=== PATIENT | male | born 1980 | race Caucasian/White ===

== ENCOUNTER 2016-12-07 07:20 | Emergency (ER) | payer OTHER ==
[~2016-12-07] VITALS: Ht 180.3 cm; Wt 120.2 kg
[~2016-12-07 07:20] MED LIST: ATRN INH; FAMO20TA12 PO; PRON INH
[2016-12-07 07:30] VITALS: BP 115/76
--- NOTE | 2016-12-07 07:35 | NUR ---
PT TO OVERFLOW.
--- NOTE | 2016-12-07 07:36 | NUR ---
PATIENT PRESENTS TO ED WITH C/O LEFT FOOT PAIN . PT STATES HE TRIPPED ON AN OBJECT 4 DAYS AGO AND HAS HAD PAIN IN HIS LEFT FOOT, FROM TOP OF FOOT EXTENDING TO 5TH TOE SINCE THAT TIME . DENIES N/V/D; ECCHYMOSIS NOTED FROM TOP OF FOOT TO 5TH TOE, SKIN IS OTHERWISE PINK/WARM/DRY; AAOX4 WITH EVEN AND STEADY GAIT; LUNGS CLEAR BL; HR EVEN AND REGULAR; PT DENIES ANY FEVER, CP, SOB, OR COUGH AT THIS TIME; PATIENT STATES PAIN OF 7/10 AT THIS TIME; VSS; PATIENT POSITIONED IN OVERFLOW. ER MD MADE AWARE OF PT STATUS.
[2016-12-07 08:27] VITALS: BP 132/74
--- NOTE | 2016-12-07 08:27 | NUR ---
Patient discharged with v/s stable. Written and verbal after care instructions given and explained. Patient verbalized understanding. Ambulatory with steady gait. All questions addressed prior to discharge. Advised to follow up with PMD.
== END 2016-12-07 08:27 | disposition home or self-care (01) ==
LOC: MED 07:20
DX: S92.512A Displaced fracture of proximal phalanx of left lesser toe(s), initial encounter for closed fracture (principal); J45.909 Unspecified asthma, uncomplicated; Z79.899 Other long term (current) drug therapy; W22.8XXA Striking against or struck by other objects, initial encounter; Y93.89 Activity, other specified; Y92.89 Other specified places as the place of occurrence of the external cause; Y99.8 Other external cause status
CPT/HCPCS: 73630; 99284

== ENCOUNTER 2017-05-24 03:20 | Emergency (ER) | payer OTHER ==
[~2017-05-24] VITALS: Ht 175.3 cm; Wt 113.4 kg
[2017-05-24 03:28] VITALS: BP 115/81
--- NOTE | 2017-05-24 03:35 | NUR ---
AMBULATED TO ER BED 2
--- NOTE | 2017-05-24 03:45 | NUR ---
Pt came to ED c/o mid upper back pain radiating to right anterior ribs with some SOB. Pt states he is feeling tigh d/t bloating. Last meal was 10pm of frozen burritos. Pt also c/o gastric reflux pain. Pt took tums and gasex at home without reliefe. Pt states vomiting since 0000. VSS, Pt in POC, MD aware, continue to monitor.
[2017-05-24] MEDS: NACL 0.9% 1,000 ML IV ONE (04:11)
[2017-05-24 04:13] LABS: RED BLOOD CELL COUNT(AUTO) 5.25 MIL/uL (4.20-6.10); WHITE BLOOD COUNT (AUTO) 9.2 K/uL (4.8-10.8)
[2017-05-24 04:14] LABS: ANION GAP 12.3 (8-16); CARBON DIOXIDE 28.9 mmol/L (21-32); CREATININE 0.9 mg/dL (0.7-1.3); HEMATOCRIT 44.5 % (36-52); MEAN CORPUSCULAR HEMOGLOBIN 29 pg (27-31); MEAN CORPUSCULAR HGB CONC 34 g/dL (33-37); MEAN CORPUSCULAR VOLUME 85 fL (80-94); PLATELET COUNT (AUTO) 158 K/uL (140-450); POTASSIUM 4.2 mmol/L (3.5-5.1); RED CELL DISTRIBUTION WIDTH 13.8 % (11.6-13.7)
[2017-05-24 04:15] LABS: BASOPHILS % (AUTO) 0.4 % (0.0-2.0); EOSINOPHILS # (AUTO) 0.2 K/uL (0-0.4); EOSINOPHILS % (AUTO) 2.1 % (0.0-4.0); LYMPHOCYTES # (AUTO) 1.7 K/uL (2.0-11.5); LYMPHOCYTES % (AUTO) 18.3 % (20.5-51.1); MONOCYTES # (AUTO) 0.5 K/uL (0.8-1.0); MONOCYTES % (AUTO) 5.8 % (1.7-9.3); NEUTROPHILS # (AUTO) 6.7 K/uL (1.8-7.7); NEUTROPHILS % (AUTO) 73.4 % (42.2-75.2)
[2017-05-24] MEDS: KETOROLAC 30 MG/ML VIAL IVP ONE (04:17)
[2017-05-24] MEDS: ONDANSETRON 4 MG/2 ML VIAL IVP ONE (04:18)
[2017-05-24] MEDS: PANTOPRAZOLE 40 MG INJ VIAL IVP ONE (04:18)
[2017-05-24 04:20] LABS: ALBUMIN 3.7 g/dL (3.4-5.0); TOTAL BILIRUBIN 0.4 mg/dL (0.0-1.0)
--- NOTE | 2017-05-24 04:36 | NUR ---
Pt escorted to Xray by tech via wheel chair.
--- NOTE | 2017-05-24 05:00 | NUR ---
Pt returned to bed 2. VSS. Continue to monitor.
[2017-05-24] MEDS: MORPHINE SULFATE 2 MG/ML SYR IVP ONE (05:05)
[2017-05-24 05:30] VITALS: BP 124/79
--- NOTE | 2017-05-24 05:30 | NUR ---
Patient discharged with v/s stable and pain relieved. Written and verbal after care instructions given and explained. Patient alert, oriented and verbalized understanding of instructions. Ambulatory with steady gait. All questions addressed prior to discharge. ID band removed. Patient advised to follow up with PMD. Rx of Omeprazole, Tramadol, Zofran given. Patient educated on indication of medication including possible reaction and side effects. Opportunity to ask questions provided and answered.
== END 2017-05-24 05:30 | disposition home or self-care (01) ==
LOC: MED 03:20
DX: T62.8X1A Toxic effect of other specified noxious substances eaten as food, accidental (unintentional), initial encounter (principal); R10.9 Unspecified abdominal pain; M54.9 Dorsalgia, unspecified; R07.9 Chest pain, unspecified; R03.0 Elevated blood-pressure reading, without diagnosis of hypertension; J45.909 Unspecified asthma, uncomplicated; Z79.899 Other long term (current) drug therapy; Y92.89 Other specified places as the place of occurrence of the external cause
CPT/HCPCS: 36415; 74022; 80053; 83690; 85025; 96361; 96374; 96375; 99285; C9113; J1885; J2270; J2405; J7030

== ENCOUNTER 2017-05-26 05:30 | Emergency (ER) | payer OTHER ==
[~2017-05-26] VITALS: Ht 180.3 cm; Wt 130.6 kg
[2017-05-26 05:38] VITALS: BP 133/74
[2017-05-26] MEDS ORDERED: KETOROLAC 30 MG/ML VIAL IVP ONE (06:50)
[2017-05-26] MEDS ORDERED: metroNIDAZOLE 500 MG/NS PREMIX 100 ML IV ONE (06:50)
[2017-05-26] MEDS ORDERED: NACL 0.9% 1,000 ML IV ONE (06:50)
[2017-05-26] MEDS ORDERED: methylPREDNISolone SS 125 MG in WATER STERILE 2 ML IV ONE (06:50)
[2017-05-26] MEDS ORDERED: methylPREDNISolone SS 125 MG/2 ML VIAL ONE (06:56)
[2017-05-26 07:24] LABS: BASOPHILS # (AUTO) 0.2 K/uL (0.00-0.22); BASOPHILS % (AUTO) 2.3 % (0.0-2.0); EOSINOPHILS # (AUTO) 0.3 K/uL (0-0.4); HEMATOCRIT 44.1 % (36-52); HEMOGLOBIN 14.8 g/dL (12.0-18.0); LYMPHOCYTES # (AUTO) 1.6 K/uL (2.0-11.5); MEAN CORPUSCULAR HEMOGLOBIN 28 pg (27-31); MEAN CORPUSCULAR HGB CONC 34 g/dL (33-37); MEAN CORPUSCULAR VOLUME 84 fL (80-94); MONOCYTES # (AUTO) 0.5 K/uL (0.8-1.0); MONOCYTES % (AUTO) 6.9 % (1.7-9.3); NEUTROPHILS % (AUTO) 65.8 % (42.2-75.2); PLATELET COUNT (AUTO) 153 K/uL (140-450); RED BLOOD CELL COUNT(AUTO) 5.22 MIL/uL (4.20-6.10); RED CELL DISTRIBUTION WIDTH 12.8 % (11.6-13.7); WHITE BLOOD COUNT (AUTO) 7.6 K/uL (4.8-10.8)
[2017-05-26 07:30] LABS: APPEARANCE,URINE CLEAR (CLEAR); BILIRUBIN,URINE NEGATIVE (NEGATIVE); BLOOD, URINE NEGATIVE (NEGATIVE); COLOR,URINE YELLOW (YELLOW); LEUKOCYTE ESTERASE ,URINE NEGATIVE (NEGATIVE); NITRITE, URINE NEGATIVE (NEGATIVE); PH,URINE 7.5 (5.0-9.0); UGLUCOSE NEGATIVE (NEGATIVE)
[2017-05-26 07:40] LABS: RBC,URINE 0-5 (RARE) /HPF (0-5); WBC,URINE 0-5 (RARE) /HPF (0-5)
[2017-05-26 07:42] LABS: ANION GAP 11.6 (8-16); CARBON DIOXIDE 28.7 mmol/L (21-32); POTASSIUM 4.3 mmol/L (3.5-5.1)
[2017-05-26 07:43] LABS: ALBUMIN 3.6 g/dL (3.4-5.0); CREATININE 0.8 mg/dL (0.7-1.3); TOTAL BILIRUBIN 0.3 mg/dL (0.0-1.0)
[2017-05-26 08:38] VITALS: BP 131/82
== END 2017-05-26 08:37 | disposition home or self-care (01) ==
LOC: MED 05:30
DX: K64.9 Unspecified hemorrhoids (principal); J45.909 Unspecified asthma, uncomplicated; K21.9 Gastro-esophageal reflux disease without esophagitis
CPT/HCPCS: 36415; 74176; 80053; 81001; 82150; 83690; 85025; 96365; 96375; 99285; J1885; J2930; J3490; J7030

== ENCOUNTER 2017-06-09 01:50 | Emergency (ER) | payer OTHER ==
[~2017-06-09] VITALS: Ht 182.9 cm; Wt 113.4 kg
[2017-06-09 02:03] VITALS: BP 142/66
--- NOTE | 2017-06-09 02:08 | NUR ---
TO ER CHAIR A
[2017-06-09 02:10] VITALS: BP 142/66
--- NOTE | 2017-06-09 02:10 | NUR ---
PATIENT PRESENTS TO ED WITH C/O COUGHING, CONGESTION, DIMINSHED BREATH SOUNDS MED HX: ASTHMA PT DENIES N/V/D; SKIN IS PINK/WARM/DRY; AAOX4 WITH EVEN AND STEADY GAIT; HR EVEN AND REGULAR; PATIENT STATES PAIN OF 10/10 AT THIS TIME; VSS; PATIENT POSITIONED FOR COMFORT; HOB ELEVATED; BEDRAILS UP X2; BED DOWN. ER MD MADE AWARE OF PT STATUS.
[2017-06-09] MEDS ORDERED: methylPREDNISolone SS 125 MG in WATER STERILE 2 ML IM ONE (02:25)
[2017-06-09] MEDS ORDERED: ALBUTEROL SULFATE/IPRATROPIU 3 ML SOL IH ONE (02:25)
[2017-06-09] MEDS ORDERED: methylPREDNISolone SS 125 MG/2 ML VIAL ONE (02:26)
--- NOTE | 2017-06-09 02:30 | NUR ---
Respiratory Therapist at bedside for respiratory intervention. Patient tolerated .
--- NOTE | 2017-06-09 02:49 | NUR ---
PT TO XRAY VIA W/C IN STABLE CONDITION
--- NOTE | 2017-06-09 02:52 | NUR ---
PT RETURNED FROM XRAY VIA W/C IN STABLE CONDITION
[2017-06-09] MEDS ORDERED: ACETAMIN/CODEINE 120/12MG-5ML 5 ML UDC PO ONE (03:00)
--- NOTE | 2017-06-09 03:13 | NUR ---
PT REFUSED TYLENOL WITH CODEINE. PT WAS OFFERED VICODIN AND WAS REFUSED THAT WELL. PT WAS BELIGERENT AND USING SWEAR WORDS WHEN GIVEN DISCHARGE INSTRUCTIONS. PT REFUSED TO TAKE DISCHARGE INSTRUCTIONS AND WOULD ONLY TAKE HIS PRESCRIPTIONS WITH HIM. DR MONTES AND RN TALKED TO PT REGARDING DISCHARGE INSTRUCTIONS, HE JUST TOOK HIS PRESCRIPTIONS AND LEFT. RX'S GIVEN WERE AZITHROMYCIN, ALBUTEROL, PREDNISONE, GUAIATUSSIN.
== END 2017-06-09 03:13 | disposition home or self-care (01) ==
LOC: MED 01:50
DX: J45.901 Unspecified asthma with (acute) exacerbation (principal); J44.9 Chronic obstructive pulmonary disease, unspecified; J45.909 Unspecified asthma, uncomplicated; F17.210 Nicotine dependence, cigarettes, uncomplicated
CPT/HCPCS: 71045; 94640; 96372; 99283; J2930; J7620

== ENCOUNTER 2017-07-16 12:57 | Emergency (ER) | payer OTHER ==
[~2017-07-16] VITALS: Ht 180.3 cm; Wt 114.8 kg
[2017-07-16 13:01] VITALS: BP 137/93
--- NOTE | 2017-07-16 13:14 | NUR ---
37 YO M BIB SELF W/ C/O N/V SINCE 10AM THIS MORNING. PT REPORTS ABD PAIN 5/10 THAT DOES NOT RADIATE. PT A&O X 4. GCS 15. AMBULATORY W/STEADY GAIT. RESPIRATIONS EVEN AND UNLABORED. LUNG SOUNDS CLEAR BILATERALLY. CMS INTACT. PT ABD SOFT, NON-TENDER. BOWEL SOUNDS ACTIVE X 4. DENIES FEVER/CHILLS. DENIES DIARRHEA. REPORTS HE HAD A BBQ LAST NIGHT + CONSUMED 2 SHOTS OF ALCOHOL. ER MD AVENDANO NOTIFIED. PT NEEDS MET AT THIS TIME. WILL CONTINUE TO MONITOR.
[2017-07-16] MEDS ORDERED: ONDANSETRON 4 MG ODT PO ONE (14:10)
[2017-07-16 14:37] VITALS: BP 134/83
== END 2017-07-16 14:37 | disposition home or self-care (01) ==
LOC: MED 12:57
DX: R11.2 Nausea with vomiting, unspecified (principal); R10.84 Generalized abdominal pain; R03.0 Elevated blood-pressure reading, without diagnosis of hypertension; K21.9 Gastro-esophageal reflux disease without esophagitis; J45.909 Unspecified asthma, uncomplicated; F17.210 Nicotine dependence, cigarettes, uncomplicated
CPT/HCPCS: 99283; S0119

== ENCOUNTER 2017-08-29 19:04 | Emergency (ER) | payer OTHER ==
[~2017-08-29] VITALS: Ht 177.8 cm; Wt 122.5 kg
[2017-08-29 19:12] VITALS: BP 126/89
[2017-08-29] MEDS: KETOROLAC 60 MG/2 ML VIAL IM ONE (20:11)
[2017-08-29] MEDS: MORPHINE SULFATE 4 MG/ML SYR IM ONE (21:03)
[2017-08-29 21:57] VITALS: BP 126/89
== END 2017-08-29 21:56 | disposition home or self-care (01) ==
LOC: MED 19:04
DX: M54.2 Cervicalgia (principal); M25.512 Pain in left shoulder; M25.511 Pain in right shoulder; J45.909 Unspecified asthma, uncomplicated; K21.9 Gastro-esophageal reflux disease without esophagitis; Z79.899 Other long term (current) drug therapy
CPT/HCPCS: 72125; 96372; 99284; J1885; J2270

== ENCOUNTER 2017-10-22 18:26 | Emergency (ER) | payer OTHER ==
[~2017-10-22] VITALS: Ht 177.8 cm; Wt 132.0 kg
[2017-10-22 18:36] VITALS: BP 126/85
--- NOTE | 2017-10-22 18:42 | NUR ---
patient ambulated to rm 6 with steady gait. Gave report to Janis PETERSON.
--- NOTE | 2017-10-22 18:50 | NUR ---
37YO M with c/o right ankle pain x yesterday s/p "twisting his ankle while walking down stairs". Swelling noted to right ankle. Skin intact. Pulses +2 and < 3 seconds cap-refill. Able to bear weight on right leg. WILL CONTINUE TO MONITOR hx--asthma
--- NOTE | 2017-10-22 19:02 | NUR ---
XRAY AT BEDSIDE
--- NOTE | 2017-10-22 19:34 | NUR ---
Dr. Morris evaluating patient at bedside.
[2017-10-22 19:47] VITALS: BP 125/85
--- NOTE | 2017-10-22 19:48 | NUR ---
R ANKLE STIRRUP AND CRUTCHES PROVIDED BY EMT
== END 2017-10-22 19:49 | disposition home or self-care (01) ==
LOC: MED 18:26
DX: S82.54XA Nondisplaced fracture of medial malleolus of right tibia, initial encounter for closed fracture (principal); K21.9 Gastro-esophageal reflux disease without esophagitis; J45.909 Unspecified asthma, uncomplicated; F17.200 Nicotine dependence, unspecified, uncomplicated; W10.8XXA Fall (on) (from) other stairs and steps, initial encounter; Y93.89 Activity, other specified; Y92.89 Other specified places as the place of occurrence of the external cause; Y99.8 Other external cause status
CPT/HCPCS: 29515; 73610; 99284; Q0092

== ENCOUNTER 2018-05-19 03:40 | Emergency (ER) | payer OTHER ==
[~2018-05-19] VITALS: Ht 180.3 cm; Wt 122.5 kg
[2018-05-19 03:43] VITALS: BP 133/74
--- NOTE | 2018-05-19 03:43 | NUR ---
TO BED # 7 AMBULATORY, REPORT GIVEN TO MARIA ELENA PETERSON
--- NOTE | 2018-05-19 03:45 | NUR ---
PATIENT PRESENTED ER WITH C/O SOB X 2 DAYS. PT STATED THAT HE HAS HAD COUGHING WHEEZING AND CONGESTION. PT HAS HX OF ASTHMA. LUNG SOUNDS WHEEZES BILATERAL THROUGHOUT. PT DENIES FEVER, N/V/D. PATIENT STATES PAIN OF 7/10 AT THIS TIME; VSS; PATIENT POSITIONED FOR COMFORT; HOB ELEVATED; BEDRAILS UP X2; BED DOWN. ER MD MADE AWARE OF PT STATUS.
[2018-05-19] MEDS ORDERED: ALBUTEROL 0.083% 2.5 MG/3 ML NEBU INH ONE (03:55)
[2018-05-19] MEDS ORDERED: ALBUTEROL SULFATE/IPRATROPIU 3 ML SOL IH ONE (03:55)
[2018-05-19] MEDS ORDERED: predniSONE 20 MG TAB PO ONE (03:55)
[2018-05-19] MEDS ORDERED: KETOROLAC 60 MG/2 ML VIAL IM ONE (04:00)
--- NOTE | 2018-05-19 04:34 | NUR ---
PT IS SITTING UP IN BED, RESP. GAVE BREATHING TREATMENT. PT TOLERATED WELL. PENDING D/C. NANCI GAXIOLA MADE AWARE OF STATUS.
[2018-05-19 05:10] VITALS: BP 135/90
--- NOTE | 2018-05-19 05:10 | NUR ---
Patient discharged with v/s stable. Written and verbal after care instructions given and explained. Patient alert, oriented and verbalized understanding of instructions. Ambulatory with steady gait. All questions addressed prior to discharge. ID band removed. Patient advised to follow up with PMD. Rx of ZOFRAN, MOTRIN, PREDNISONE WAS given. Patient educated on indication of medication including possible reaction and side effects. Opportunity to ask questions provided and answered.
== END 2018-05-19 05:10 | disposition home or self-care (01) ==
LOC: MED 03:40
DX: J45.901 Unspecified asthma with (acute) exacerbation (principal); R05 Cough; R11.0 Nausea; F10.10 Alcohol abuse, uncomplicated; K21.9 Gastro-esophageal reflux disease without esophagitis; F17.200 Nicotine dependence, unspecified, uncomplicated; Z79.899 Other long term (current) drug therapy
CPT/HCPCS: 94640; 94760; 96372; 99283; J1885; J7512; J7613; J7620

== ENCOUNTER 2018-06-01 07:00 | Emergency (ER) | payer OTHER ==
[~2018-06-01] VITALS: Ht 180.3 cm; Wt 130.4 kg
[2018-06-01 07:12] VITALS: BP 133/66
--- NOTE | 2018-06-01 07:22 | NUR ---
PT AMBULATED TO ER BED 11
[2018-06-01] MEDS ORDERED: cefTRIAXone 1,000 MG in DEXT 5% MINI-BAG PLUS 50 ML IV ONE (07:30)
[2018-06-01] MEDS ORDERED: ALBUTEROL SULFATE/IPRATROPIU 3 ML SOL IH ONE (07:30)
[2018-06-01] MEDS ORDERED: KETOROLAC 30 MG/ML VIAL IM ONE (07:30)
[2018-06-01] MEDS ORDERED: methylPREDNISolone SS 125 MG/2 ML VIAL IVP ONE (07:30)
[2018-06-01] MEDS ORDERED: FAMOTIDINE 20 MG/2 ML VIAL IVP ONE (07:30)
[2018-06-01] MEDS ORDERED: diphenhydrAMINE 50 MG/ML VIAL IVP ONE (07:30)
[2018-06-01] MEDS ORDERED: PROMETHAZINE 25 MG/ML VIAL IM ONE (07:30)
[2018-06-01] MEDS ORDERED: AZITHROMYCIN 500 MG in DEXTROSE 5% 250 ML IV ONE (07:30)
--- NOTE | 2018-06-01 08:01 | NUR ---
PHLEB AT BEDSIDE
[2018-06-01] MEDS ORDERED: cefTRIAXone 1,000 MG VIAL ONE (08:13)
[2018-06-01] MEDS ORDERED: AZITHROMYCIN 500 MG INJ VIAL IV ONE (08:14)
--- NOTE | 2018-06-01 08:17 | NUR ---
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 PT REPORTS THAT HE TOOK 800MG IBUPROFEN AT 0200 WITHOUT RELIEF. RR EVEN AND UNLABORED. DRY COUGH NOTED. AAOX4. GCS 15. VSS; PATIENT POSITIONED FOR COMFORT IN CHAIR; BED DOWN. ER MD MADE AWARE OF PT STATUS.
--- NOTE | 2018-06-01 08:36 | NUR ---
RT AT BEDSIDE.
[2018-06-01 08:43] LABS: ANION GAP 12.4 (8-16); CARBON DIOXIDE 27.6 mmol/L (21-32)
[2018-06-01 08:47] LABS: BASOPHILS # (AUTO) 0.1 K/uL (0.00-0.22); BASOPHILS % (AUTO) 0.6 % (0.0-2.0); EOSINOPHILS # (AUTO) 0.2 K/uL (0-0.4); EOSINOPHILS % (AUTO) 2.7 % (0.0-4.0); HEMATOCRIT 48.9 % (36-52); HEMOGLOBIN 16.4 g/dL (12.0-18.0); LYMPHOCYTES # (AUTO) 2.2 K/uL (2.0-11.5); LYMPHOCYTES % (AUTO) 26.3 % (20.5-51.1); MEAN CORPUSCULAR HEMOGLOBIN 29 pg (27-31); MEAN CORPUSCULAR HGB CONC 33 g/dL (33-37); MEAN CORPUSCULAR VOLUME 85.3 fL (80-94); MONOCYTES # (AUTO) 0.6 K/uL (0.8-1.0); MONOCYTES % (AUTO) 7.4 % (1.7-9.3); NEUTROPHILS # (AUTO) 5.3 K/uL (1.8-7.7); PLATELET COUNT (AUTO) 160 K/uL (140-450); RED BLOOD CELL COUNT(AUTO) 5.73 MIL/uL (4.20-6.10); WHITE BLOOD COUNT (AUTO) 8.4 K/uL (4.8-10.8)
[2018-06-01 08:54] LABS: ALBUMIN 3.9 g/dL (3.4-5.0); TOTAL BILIRUBIN 0.6 mg/dL (0.0-1.0)
[2018-06-01] MEDS ORDERED: MORPHINE SULFATE 4 MG/ML SYR IM ONE (09:15)
--- NOTE | 2018-06-01 09:20 | NUR ---
DR GIBSON INFORMED THAT PATIENT STILL COMPLAINING OF 10/10 PAIN IN BACK.
[2018-06-01] MEDS ORDERED: MORPHINE SULFATE 4 MG/ML SYR ONE (09:31)
[2018-06-01 10:11] VITALS: BP 133/66
--- NOTE | 2018-06-01 10:11 | NUR ---
Patient discharged with v/s stable. Written and verbal after care instructions given and explained. Patient alert, oriented and verbalized understanding of instructions. Ambulatory with steady gait. All questions addressed prior to discharge. ID band removed. Patient advised to follow up with PMD. Rx of CODEINE, ALBUTEROL, PREDNISONE, DOXYCYCLINE given. Patient educated on indication of medication including possible reaction and side effects. Opportunity to ask questions provided and answered.
[2018-06-01 11:36] LABS: APPEARANCE,URINE CLEAR (CLEAR); BILIRUBIN,URINE NEGATIVE (NEGATIVE); BLOOD, URINE NEGATIVE (NEGATIVE); COLOR,URINE YELLOW (YELLOW); LEUKOCYTE ESTERASE ,URINE NEGATIVE (NEGATIVE); NITRITE, URINE NEGATIVE (NEGATIVE); PH,URINE 8.5 (5.0-9.0); UGLUCOSE NEGATIVE (NEGATIVE)
== END 2018-06-01 10:11 | disposition home or self-care (01) ==
LOC: MED 07:00
DX: J44.1 Chronic obstructive pulmonary disease with (acute) exacerbation (principal); M54.5 Low back pain; G89.29 Other chronic pain; K21.9 Gastro-esophageal reflux disease without esophagitis; Z79.899 Other long term (current) drug therapy
CPT/HCPCS: 36415; 71045; 80053; 81003; 85025; 87040; 94640; 96365; 96367; 96372; 96375; 99284; J0456; J0696; J1200; J1885; J2270; J2550; J2930; J3490; J7620

== ENCOUNTER 2018-08-12 21:21 | Emergency (ER) | payer OTHER ==
[~2018-08-12] VITALS: Ht 177.8 cm; Wt 122.5 kg
[2018-08-12 21:27] VITALS: BP 126/76
--- NOTE | 2018-08-12 21:27 | NUR ---
TO BED # 09 AMBULATORY
--- NOTE | 2018-08-12 21:35 | NUR ---
BID REPORTS COUGH ACCOMPANIED BY CHEST PAIN RADIATING TO BACK X3 DAYS. STATES 10/10 PAIN. LUNG SOUNDS DIMINISHED IN BASES WITH EXP WHEEZING IN UPPER LOBES. DENIES FEVER, NVD. STATES HEAD PRESSURE AND RUNNY NOSE. ERMD MADE AWARE OF STATUS. BED IN LOW LOCKED POSITION, SIDE RAILS X1. AT BEDSIDE.
[2018-08-12] MEDS ORDERED: predniSONE 20 MG TAB PO ONE (21:40)
[2018-08-12] MEDS ORDERED: ALBUTEROL SULFATE/IPRATROPIU 3 ML SOL IH ONE ×2 (21:40→21:55)
--- NOTE | 2018-08-12 21:43 | NUR ---
X-Ray at bedside.
--- NOTE | 2018-08-12 21:49 | NUR ---
Respiratory Therapist at bedside for respiratory intervention.
[2018-08-12] MEDS ORDERED: KETOROLAC 30 MG/ML VIAL IM ONE (21:50)
[2018-08-12] MEDS ORDERED: BUDESONIDE 0.5 MG/2 ML NEBU INH ONE (22:15)
[2018-08-12] MEDS ORDERED: LEVOFLOXACIN 750 MG TAB PO ONE (22:45)
[2018-08-12] MEDS ORDERED: MORPHINE SULFATE 4 MG/ML SYR IM ONE (22:50)
[2018-08-12 23:18] VITALS: BP 121/58
--- NOTE | 2018-08-12 23:18 | NUR ---
DISCHARGE PAPERS GIVEN TO PT. 05/20 PAIN AND TOLLERABLE. 02SA6 97% @ RA. LUNGS CLEAR BILAT THROUGHOUT. NO C/O DYSPNEA OR SOB. A&OX4. RX OF ALBUTEROL INH AND PREDNISONE GIVEN. SIDE EFFECTS EXPLAINED. INSTRUCTED TO F/U WITH PCP AND WHEN TO RETURN TO ER. PT VERBALLIZED UNDERSTANDING OF DC INSTRUCTIONS. ALL QUESTIONS ANSWERED.
== END 2018-08-12 23:18 | disposition home or self-care (01) ==
LOC: MED 21:21
DX: J44.1 Chronic obstructive pulmonary disease with (acute) exacerbation (principal); K21.9 Gastro-esophageal reflux disease without esophagitis; F17.210 Nicotine dependence, cigarettes, uncomplicated; Z79.899 Other long term (current) drug therapy
CPT/HCPCS: 71045; 94640; 96372; 99283; J1885; J2270; J7512; J7620; J7626; Q0092; 99284

== ENCOUNTER 2018-08-14 05:10 | Emergency (ER) | payer OTHER ==
[~2018-08-14] VITALS: Ht 180.3 cm; Wt 117.9 kg
[2018-08-14 05:14] VITALS: BP 137/84
--- NOTE | 2018-08-14 05:18 | NUR ---
AMBULATED TO ER BED 7
[2018-08-14] MEDS ORDERED: ALBUTEROL SULFATE/IPRATROPIU 3 ML SOL IH ONE ×2 (05:20→05:45)
--- NOTE | 2018-08-14 05:20 | NUR ---
PT BIB SELF C/O COUGH AND SOB. PT STATES HE WAS AT [facility] ON MONDAY FOR THE SAME SYMPTOMS AND STILL DOES NOT FEEL BETTER, PRODUCTIVE COUGH, PT STATES HE FEELS LIKE HE CANT CATCH HIS BREATH. YELLOW GREEN MUCOUS COUGH PRODUCTION. PT STATES 10/10 SHARP PAIN TO BACK AND FRONT OF CHEST WHEN COUGHING. PT SPEAKING IN CLEAR COMPLETE SENTENCES. LUNG SOUNDS WHEEZING BL, BREATHING EQUAL AND LABORED. PT ACTING AGGRESSIVE AND SPEAKING HOSTILE AT STAFF. PT IN GOWN, IN BED; BED IN LOWER LOCKED POSITON. ER MD AWARE OF PT STATUS. WILL CONTINUE TO MONITOR. PMH: ASTHMA RX: DENIES
[2018-08-14] MEDS ORDERED: MORPHINE SULFATE 4 MG/ML SYR IVP ONE (05:35)
[2018-08-14] MEDS ORDERED: diphenhydrAMINE 50 MG/ML VIAL IVP ONE (05:35)
[2018-08-14] MEDS ORDERED: NACL 0.9% 1,000 ML IV ONE (05:35)
[2018-08-14] MEDS ORDERED: methylPREDNISolone SS 125 MG in WATER STERILE 2 ML IV ONE (05:35)
[2018-08-14] MEDS ORDERED: ONDANSETRON 4 MG/2 ML VIAL IVP ONE (06:20)
--- NOTE | 2018-08-14 06:30 | NUR ---
RE-ASSESSMENT OF LUNG SOUNDS AFTER BREATHING TX, LUNG SOUNDS COARSE BL, BREATHING EQUAL AND UNLABORED. PT STATES HE SMOKES CIGARETTES DAILY.
--- NOTE | 2018-08-14 07:00 | NUR ---
Patient discharged with v/s stable. Patient acting appropriatly, breathing equal and unlabored. Patient states pain has decreased to 4/10, and states he feels better to go home. Written and verbal after care instructions given and explained. Patient alert, oriented and verbalized understanding of instructions. Ambulatory with steady gait. All questions addressed prior to discharge. ID band removed. Patient advised to follow up with PMD. Rx of [place] given. Patient educated on indication of medication including possible reaction and side effects. Opportunity to ask questions provided and answered.
[2018-08-14 07:05] VITALS: BP 124/80
== END 2018-08-14 07:00 | disposition home or self-care (01) ==
LOC: MED 05:10
DX: J45.901 Unspecified asthma with (acute) exacerbation (principal); J44.9 Chronic obstructive pulmonary disease, unspecified; K21.9 Gastro-esophageal reflux disease without esophagitis; F17.210 Nicotine dependence, cigarettes, uncomplicated; Z79.899 Other long term (current) drug therapy
CPT/HCPCS: 71045; 94640; 96374; 96375; 99284; J1200; J2270; J2405; J2930; J7030; J7620; Q0092; 99283

== ENCOUNTER 2022-05-27 00:25 | Inpatient (IN) | payer OTHER ==
[~2022-05-27] VITALS: Ht 182.9 cm; Wt 113.4 kg
[2022-05-27 00:28] VITALS: BP 156/99
--- NOTE | 2022-05-27 00:37 | NUR ---
TO BED 8 FOLLOWING TRIAGE
--- NOTE | 2022-05-27 01:13 | NUR ---
Dr. Vegas at bedside
[2022-05-27] MEDS ORDERED: ONDANSETRON 4 MG ODT PO ONE (01:20)
[2022-05-27] MEDS ORDERED: MORPHINE SULFATE 10 MG/ML VIAL IM ONE (01:20)
[2022-05-27] MEDS ORDERED: MORPHINE SULFATE 4 MG/ML SYR ONE (01:23)
[2022-05-27] MEDS ORDERED: ONDANSETRON 4 MG TAB ONE (01:23)
--- NOTE | 2022-05-27 01:46 | NUR ---
Urine collected sent to lab
[2022-05-27 01:52] LABS: APPEARANCE,URINE CLEAR (CLEAR); BILIRUBIN,URINE NEGATIVE (NEGATIVE); BLOOD, URINE 3+ (NEGATIVE); COLOR,URINE YELLOW (YELLOW); LEUKOCYTE ESTERASE ,URINE NEGATIVE (NEGATIVE); NITRITE, URINE NEGATIVE (NEGATIVE); UGLUCOSE NEGATIVE (NEGATIVE)
[2022-05-27 01:56] LABS: RBC,URINE 11-20 (MOD) /HPF (0-5)
[2022-05-27 02:16] LABS: BASOPHILS # (AUTO) 0.1 K/uL (0.00-0.22); BASOPHILS % (AUTO) 0.5 % (0.0-2.0); EOSINOPHILS # (AUTO) 0.3 K/uL (0-0.4); EOSINOPHILS % (AUTO) 2.1 % (0.0-4.0); HEMATOCRIT 44.3 % (36-52); HEMOGLOBIN 14.9 g/dL (12.0-18.0); LYMPHOCYTES # (AUTO) 2.4 K/uL (2.0-11.5); LYMPHOCYTES % (AUTO) 19.1 % (20.5-51.1); MEAN CORPUSCULAR HEMOGLOBIN 28 pg (27-31); MEAN CORPUSCULAR HGB CONC 34 g/dL (33-37); MEAN CORPUSCULAR VOLUME 84.5 fL (80-94); MONOCYTES # (AUTO) 0.7 K/uL (0.8-1.0); MONOCYTES % (AUTO) 5.6 % (1.7-9.3); NEUTROPHILS # (AUTO) 9.2 K/uL (1.8-7.7); NEUTROPHILS % (AUTO) 72.7 % (42.2-75.2); PLATELET COUNT (AUTO) 195 K/uL (140-450); RED BLOOD CELL COUNT(AUTO) 5.24 MIL/uL (4.20-6.10); RED CELL DISTRIBUTION WIDTH 13.3 % (11.6-13.7); WHITE BLOOD COUNT (AUTO) 12.7 K/uL (4.8-10.8)
[2022-05-27] MEDS ORDERED: KETOROLAC 30 MG/ML VIAL IVP ONE ×2 (02:20→04:30)
[2022-05-27] MEDS ORDERED: cefTRIAXone 1,000 MG VIAL ONE (02:30)
[2022-05-27 02:58] LABS: BARBITURATE, URINE NEGATIVE ng/ml (NEG <=200)
[2022-05-27 02:59] LABS: BENZODIAZEPINE, URINE NEGATIVE ng/mL (NEG <=200); CANNABINOID, URINE POSITIVE ng/mL (NEG <=50); COCAINE, URINE NEGATIVE ng/mL (NEG <=300); OPIATE, URINE NEGATIVE ng/mL (NEG <=2000); PHENCYCLIDINE SCREEN,URINE NEGATIVE ng/mL (NEG <=25)
[2022-05-27 03:05] LABS: ALBUMIN 3.9 g/dL (3.4-5.0); ANION GAP 11.2 (8-16); CARBON DIOXIDE 30.3 mmol/L (21-32); CREATININE 0.9 mg/dL (0.6-1.3); POTASSIUM 4.5 mmol/L (3.5-5.1); TOTAL BILIRUBIN 0.4 mg/dL (0.0-1.0)
--- NOTE | 2022-05-27 03:50 | NUR ---
Resting comfortably at this time. Pt verbalizes relief from pain, 2/10
[2022-05-27] MEDS ORDERED: NACL 0.9% 1,000 ML IV ONE (04:30)
[2022-05-27] MEDS ORDERED: MORPHINE SULFATE 4 MG/ML SYR IVP ONE (04:30)
[2022-05-27] MEDS ORDERED: LORazepam 2 MG/ML VIAL IVP PRN (05:35)
[2022-05-27] MEDS ORDERED: ACETAMINOPHEN 325 MG TAB PO PRN (05:35)
[2022-05-27] MEDS ORDERED: ONDANSETRON 4 MG/2 ML VIAL IVP PRN ×2 (05:35→20:10)
[2022-05-27] MEDS ORDERED: HYDROcodone/APAP 5/325 MG 1 TAB TAB PO PRN (05:35)
[2022-05-27] MEDS: NACL 0.9% 1,000 ML IV SCH ×2 (06:26→15:35)
--- NOTE | 2022-05-27 07:59 | NUR ---
Patient will be admitted to care of DR HUFF. Admited to MED SURG. Will go to room 106B. Belongings list completed. Report to NACHO PETERSON.
[2022-05-27 08:00] VITALS: BP 117/50
--- NOTE | 2022-05-27 08:04 | NUR ---
RECEIVED PT FROM ER, REPORT GIVEN BY NIRALI FOR CONTINUITY OF CARE. INITIAL ASSESSMENT DONE. PT ALERT AND ORIENTED X 4, AMBULATORY. RESP. EVEN AND UNLABORED. PLACE IN BED COMFORTABLY. CALL LIGHT KEPT WITHIN REACH.
--- NOTE | 2022-05-27 08:25 | NUR ---
SEEN BY DR. WEAVER.
--- NOTE | 2022-05-27 08:26 | NUR ---
PT PLACED ON NPO EXCEPT MEDS FOR POSSIBLE SURGERY TODAY.
[2022-05-27] MEDS ORDERED: TAMSULOSIN 0.4 MG CAP PO SCH (08:30)
[2022-05-27] MEDS ORDERED: ENOXAPARIN 40 MG/0.4 ML SYR SUBQ SCH (09:00)
[2022-05-27] MEDS: MORPHINE SULFATE 2 MG/ML SYR IVP PRN ×2 (10:33→15:19)
--- NOTE | 2022-05-27 10:35 | NUR ---
ADMINISTERED SCHEDULED PO MEDICATION. TOLERATING WELL. HEPARIN NOT GIVEN D/T PT SCHEDULED FOR SURGERY AT 16:30. PT ON NPO EXCEPT MEDS.
--- NOTE | 2022-05-27 12:13 | NUR ---
PT REQUESTING FOR BREATHING TREATMENT. DR. WEAVER NOTIFIED WITH NEW ORDER DUONEB Q 6 HR PRN. NOTED AND CARRIED OUT.
[2022-05-27] MEDS ORDERED: ALBUTEROL SULFATE/IPRATROPIU 3 ML SOL IH PRN (12:15)
--- NOTE | 2022-05-27 12:58 | NUR ---
PT COMPLAINT OF ABDOMINAL PAIN AND STATING SHE DIDN'T GET PAIN MEDICATION. PRN MORPHINE 2MG IVP WAS GIVEN BY SADAF PETERSON. OFFERED PRN NORCO BUT REFUSED. PT REQUESTING FOR TRAMADOL, DR. WEAVER NOTIFIED AWAITING FOR RESPONSE.
[2022-05-27] MEDS ORDERED: traMADol 50 MG TAB PO PRN (14:05)
--- NOTE | 2022-05-27 14:05 | NUR ---
RECEIVED NEW ORDER TRAMADOL 50 MG PO Q4H PRN FOR MODERATE PAIN. NOTED AND CARRIED OUT.
--- NOTE | 2022-05-27 14:15 | NUR ---
PRN TRAMADOL WAS GIVEN. TOLERATING WELL.
--- NOTE | 2022-05-27 15:19 | NUR ---
PRN MORPHINE 2 MG IVP WAS GIVEN BY UBALDO PETERSON FOR PAIN MANAGEMENT.
[2022-05-27 16:00] VITALS: BP 138/64
--- NOTE | 2022-05-27 16:04 | NUR ---
PATIENT HAS BEEN SCREENED AND CATEGORIZED LOW NUTRITION RISK. PATIENT WILL BE SEEN WITHIN 7 DAYS OF ADMISSION. 06/03/[address] OZ [address]
--- NOTE | 2022-05-27 16:34 | NUR ---
MRSA SWAB COLLECTED.
[2022-05-27] MEDS ORDERED: SEVOFLURANE 250 ML BTL INH ONE (18:00)
[2022-05-27] MEDS ORDERED: fentaNYL citrate 0.05 MG/ML - 50mL vial IV ONE (18:00)
[2022-05-27] MEDS ORDERED: SUGAMMADEX SODIUM 200 MG/2 ML VIAL IV ONE (18:00)
[2022-05-27] MEDS ORDERED: DEXAMETHASONE 10 MG/ML VIAL ONE (18:00)
[2022-05-27] MEDS ORDERED: ONDANSETRON 4 MG/2 ML VIAL ONE (18:00)
[2022-05-27] MEDS ORDERED: PROPOFOL 200 MG/20 ML VIAL IV ONE ×3 (18:00→19:16)
--- NOTE | 2022-05-27 18:09 | NUR ---
PT WAS TRANSFERRED TO SURGERY, REPORT GIVEN TO RICARDO PETERSON. REMAINS STABLE.
[2022-05-27] MEDS ORDERED: fentaNYL citrate 0.05 MG/ML VIAL ONE (19:02)
--- NOTE | 2022-05-27 19:10 | NUR ---
REPORT GIVEN TO NIGHT NURSE DICAPIO FOR CONTINUITY OF CARE. PT IS OFF UNIT FOR SURGERY.
[2022-05-27] MEDS ORDERED: SUCCINYLCHOLINE CHLORIDE 200 MG/10 ML VIAL IVP ONE (19:17)
--- NOTE | 2022-05-27 19:54 | NUR ---
RECEIVED REPORT AMARA PETERSON (REGISTRY), PATIENT IS OFF UNIT IN SURGERY. [id number]
[2022-05-27] MEDS ORDERED: hydrALAZINE 20 MG/ML VIAL IVP PRN (20:08)
[2022-05-27] MEDS ORDERED: LABETALOL 20 MG/4 ML VIAL IVP PRN (20:08)
[2022-05-27] MEDS ORDERED: METOCLOPRAMIDE 10 MG/2 ML INJ VIAL IVP PRN (20:08)
[2022-05-27] MEDS ORDERED: HYDROmorphone 1 MG/ML AMP IVP PRN (20:10)
--- NOTE | 2022-05-27 21:06 | NUR ---
PATIENT HAS RETURNED FROM SURGERY VERY VERBALLY AGGRESSIVE. PATIENT WANTED TO GET UP AND LEAVE. NURSING ENCOURAGED [id number] NOT TO BECAUSE BLOOD PRESSURE WAS NOTED LOW 91/59 HR 86. PATIENT GAIT WAS UNSTEADY. PATIENT TOLD RECEIVING NURSE AND POST OP NURSE SAMMI PETERSON "TO STOP BEING BITCHES". NURSING INFORMED SENIOR MARKETING ENGINEER AND CHARGE NURSE. PATIENT STATED HE WANTS TO LEAVE AMA. NURSING INFORMED MD GAVE PAPER WORK TO SIGN AMA AND EXPLAINED TO PATIENT THAT HE WILL BE RESPONSIBLE FOR HIS ACTIONS AND WE ARE NOT RESPONSIBLE FOR HIM ONCE HE LEAVES. PATIENT ACCEPTED SPEECH WAS NOTED SLURRED AND RAMBLING. PATIENT LEFT WITH HIS SPOUSE. [id number]
[2022-05-28] MEDS ORDERED: ACET-8905 PO ×2 (09:02→09:03)
[2022-05-28] MEDS ORDERED: IBUP-2213 PO (09:02)
[2022-05-28] MEDS ORDERED: LEVO750T75 PO (09:02)
== END 2022-05-27 21:19 | disposition left against medical advice (07) | DRG 463 ==
LOC: MED 00:25 → MMU 05:42 → MTU 06:21
PROVIDERS: ADMIT Student in an Organized Health Care Education/Training Program; ATTEND Student in an Organized Health Care Education/Training Program
PROC: 0TF7XZZ Fragmentation in Left Ureter, External Approach (ICD-10-PCS; principal; 2022-05-27 16:30)
DX: N13.6 Pyonephrosis (principal); E66.9 Obesity, unspecified; K21.9 Gastro-esophageal reflux disease without esophagitis; E78.5 Hyperlipidemia, unspecified; J44.9 Chronic obstructive pulmonary disease, unspecified; I10 Essential (primary) hypertension; Z68.33 Body mass index [BMI] 33.0-33.9, adult
CPT/HCPCS: 36415; 80053; 80305; 81001; 83605; 83690; 85025; 87040; 87081; 96365; 96372; 96375; 99285; J0330; J0696; J1100; J1885; J2060; J2270; J2405; J2704; J3010; J7060; Q0162

== ENCOUNTER 2022-05-28 07:42 | Emergency (ER) | payer OTHER ==
[~2022-05-28] VITALS: Ht 182.9 cm; Wt 130.2 kg
[2022-05-28 07:57] VITALS: BP 153/114
[2022-05-28] MEDS ORDERED: MORPHINE SULFATE 2 MG/ML SYR IVP STA (08:11)
[2022-05-28] MEDS ORDERED: ONDANSETRON 4 MG/2 ML VIAL IVP ONE (08:15)
[2022-05-28] MEDS ORDERED: KETOROLAC 15 MG/ML VIAL IVP ONE (08:15)
[2022-05-28] MEDS ORDERED: NACL 0.9% 1,000 ML IV ONE (08:15)
[2022-05-28 08:39] LABS: BASOPHILS % (AUTO) 0.3 % (0.0-2.0); HEMATOCRIT 42.8 % (36-52); HEMOGLOBIN 14.5 g/dL (12.0-18.0); LYMPHOCYTES # (AUTO) 0.6 K/uL (2.0-11.5); LYMPHOCYTES % (AUTO) 4.3 % (20.5-51.1); MEAN CORPUSCULAR HEMOGLOBIN 28 pg (27-31); MEAN CORPUSCULAR HGB CONC 34 g/dL (33-37); MEAN CORPUSCULAR VOLUME 83.8 fL (80-94); MONOCYTES # (AUTO) 0.4 K/uL (0.8-1.0); NEUTROPHILS # (AUTO) 13.1 K/uL (1.8-7.7); NEUTROPHILS % (AUTO) 92.4 % (42.2-75.2); PLATELET COUNT (AUTO) 198 K/uL (140-450); RED BLOOD CELL COUNT(AUTO) 5.11 MIL/uL (4.20-6.10); RED CELL DISTRIBUTION WIDTH 13.1 % (11.6-13.7); WHITE BLOOD COUNT (AUTO) 14.2 K/uL (4.8-10.8)
--- NOTE | 2022-05-28 08:45 | NUR ---
medicated for abd pain 12/18, refuses to have morphine, states he needs to leave facility, plan to sign against medical advice. getting u/s done
[2022-05-28] MEDS ORDERED: LEVO750T75 PO (09:02)
[2022-05-28] MEDS ORDERED: ACET-8905 PO ×2 (09:02→09:03)
[2022-05-28] MEDS ORDERED: IBUP-2213 PO (09:02)
[2022-05-28 09:03] LABS: ALBUMIN 3.6 g/dL (3.4-5.0); ANION GAP 15.6 (8-16); CARBON DIOXIDE 24.4 mmol/L (21-32); CREATININE 1.2 mg/dL (0.6-1.3); TOTAL BILIRUBIN 0.3 mg/dL (0.0-1.0)
--- NOTE | 2022-05-28 09:08 | NUR ---
Patient does not wish to proceed with medical care recommended by COREY GAXIOLA. Patient given information related to possible complications, up to and including , which could occur as a result of leaving hospital at this time. Patient verbalizes understanding of risks involved leaving against medical advice. Patient has signed AMA form.
--- NOTE | 2022-05-28 09:27 | NUR ---
signed against medical advice, no abd pain, no n/v, spoke w Dr Kelsey prior leaving the ER a/o times 4, ambulatory and steady gait, pt to follow up w pmd in 2-3 days. zainab tinsley'kee,
[2022-05-28 09:29] VITALS: BP 136/93
== END 2022-05-28 09:03 | disposition left against medical advice (07) ==
LOC: MED 07:42
DX: N23 Unspecified renal colic (principal); N20.1 Calculus of ureter; J45.909 Unspecified asthma, uncomplicated; K21.9 Gastro-esophageal reflux disease without esophagitis; J44.9 Chronic obstructive pulmonary disease, unspecified; Z79.899 Other long term (current) drug therapy
CPT/HCPCS: 36415; 76770; 80053; 83605; 85025; 96361; 96374; 96375; 99285; J1885; J2270; J2405; J7030; Q0092

== ENCOUNTER 2022-06-02 00:06 | Observation (INO) | payer OTHER ==
[~2022-06-02] VITALS: Ht 182.9 cm; Wt 130.2 kg
[~2022-06-02 00:06] MED LIST changes: +ACET-8905 PO; -ATRN INH; -FAMO20TA12 PO; +IBUP-2213 PO; +LEVO750T75 PO; -PRON INH
--- NOTE | 2022-06-02 00:25 | NUR ---
Dr. Felton examining patient.
--- NOTE | 2022-06-02 00:34 | NUR ---
Patient refused to CT scan, Dr. Felton notified.
[2022-06-02 00:40] VITALS: BP 138/89
--- NOTE | 2022-06-02 00:40 | NUR ---
Patient refused blood drawn, Dr. Felton notified.
[2022-06-02] MEDS: MORPHINE SULFATE 4 MG/ML SYR IVP ONE (00:59)
[2022-06-02] MEDS: KETOROLAC 30 MG/ML VIAL IVP ONE (01:00)
--- NOTE | 2022-06-02 01:10 | NUR ---
42yo M here for flank pain since 4pm yesterday. Constant sharp pain from L flank radiating to L lower abd. 10 pain now. Pt moaning from pain. States he was recently diagnosed c kidney stones. Feng and shaila not working at home.
--- NOTE | 2022-06-02 01:20 | NUR ---
Pt refusing to go to CT at this time. States he wants to rest first. Dr Felton aware
[2022-06-02 01:21] LABS: BASOPHILS # (AUTO) 0.1 K/uL (0.00-0.22); BASOPHILS % (AUTO) 0.8 % (0.0-2.0); EOSINOPHILS # (AUTO) 0.3 K/uL (0-0.4); EOSINOPHILS % (AUTO) 2.3 % (0.0-4.0); LYMPHOCYTES # (AUTO) 2.8 K/uL (2.0-11.5); LYMPHOCYTES % (AUTO) 19.5 % (20.5-51.1); MEAN CORPUSCULAR HEMOGLOBIN 29 pg (27-31); MEAN CORPUSCULAR HGB CONC 34 g/dL (33-37); MEAN CORPUSCULAR VOLUME 84.1 fL (80-94); MONOCYTES # (AUTO) 0.8 K/uL (0.8-1.0); MONOCYTES % (AUTO) 5.8 % (1.7-9.3); NEUTROPHILS # (AUTO) 10.1 K/uL (1.8-7.7); NEUTROPHILS % (AUTO) 71.6 % (42.2-75.2); PLATELET COUNT (AUTO) 206 K/uL (140-450); RED BLOOD CELL COUNT(AUTO) 4.88 MIL/uL (4.20-6.10); RED CELL DISTRIBUTION WIDTH 13.5 % (11.6-13.7); WHITE BLOOD COUNT (AUTO) 14.1 K/uL (4.8-10.8)
[2022-06-02] MEDS: NACL 0.9% 1,000 ML IV ONE (01:21)
--- NOTE | 2022-06-02 01:25 | NUR ---
Pt now able to rest, sleeping after pain meds
[2022-06-02 01:42] LABS: ANION GAP 13.3 (8-16); CARBON DIOXIDE 25.9 mmol/L (21-32); CREATININE 1.1 mg/dL (0.6-1.3); POTASSIUM 4.2 mmol/L (3.5-5.1); TOTAL BILIRUBIN 0.3 mg/dL (0.0-1.0)
[2022-06-02 03:18] LABS: APPEARANCE,URINE CLOUDY (CLEAR); BILIRUBIN,URINE NEGATIVE (NEGATIVE); BLOOD, URINE 3+ (NEGATIVE); COLOR,URINE YELLOW (YELLOW); LEUKOCYTE ESTERASE ,URINE TRACE (NEGATIVE); NITRITE, URINE NEGATIVE (NEGATIVE); UGLUCOSE NEGATIVE (NEGATIVE)
[2022-06-02 03:23] LABS: RBC,URINE TOO NUMEROUS TO COUN /HPF (0-5)
--- NOTE | 2022-06-02 03:30 | NUR ---
Pt feeling better at this time. Ambulated at to bathroom. Urine sample sent to lab
--- NOTE | 2022-06-02 03:43 | NUR ---
Pt to CT Scan
[2022-06-02] MEDS ORDERED: cefTRIAXone 2,000 MG in DEXTROSE 5% 100 ML IV ONE (04:20)
[2022-06-02] MEDS ORDERED: NACL 0.9% 1,000 ML IV SCH (04:55)
[2022-06-02] MEDS ORDERED: LORazepam 2 MG/ML VIAL IVP PRN (04:55)
[2022-06-02] MEDS ORDERED: MORPHINE SULFATE 2 MG/ML SYR IVP PRN (04:55)
[2022-06-02] MEDS ORDERED: HYDROcodone/APAP 5/325 MG 1 TAB TAB PO PRN (04:55)
[2022-06-02] MEDS ORDERED: ACETAMINOPHEN 325 MG TAB PO PRN (04:55)
[2022-06-02] MEDS ORDERED: ONDANSETRON 4 MG/2 ML VIAL IVP PRN (04:55)
--- NOTE | 2022-06-02 05:15 | NUR ---
Pt informed of his kidney stone and hydronephrosis. Pt states that he does not want to be admitted as he does not want to miss work. Informed pt of risks of worsening condition, pain, and risk to his kidneys. Pt aware and still does not want to be admitted. Pt signed AMA paperwork. Dr Felton aware. IV removed. Ambulated out of ED c steady gait. 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
--- NOTE | 2022-06-02 05:24 | NUR ---
made aware of ama.
[2022-06-02 05:53] VITALS: BP 102/67
[2022-06-02] MEDS ORDERED: ENOXAPARIN 40 MG/0.4 ML SYR SUBQ SCH (09:00)
== END 2022-06-02 05:15 | disposition left against medical advice (07) ==
LOC: MED 00:06 → MMU 04:56
PROVIDERS: ADMIT Hospitalist; ATTEND Hospitalist
DX: N20.1 Calculus of ureter (principal); Z20.822 Contact with and (suspected) exposure to COVID-19; N15.9 Renal tubulo-interstitial disease, unspecified; Z53.29 Procedure and treatment not carried out because of patient's decision for other reasons
CPT/HCPCS: 36415; 74176; 76770; 80053; 81001; 85025; 87086; 87426; 96374; 96375; 99285; G0378; J1885; J2270; Q0092

== ENCOUNTER 2022-06-02 12:31 | Inpatient (IN) | payer OTHER ==
[~2022-06-02] VITALS: Ht 180.3 cm; Wt 127.5 kg
[2022-06-02 13:22] VITALS: BP 138/98
[2022-06-02] MEDS ORDERED: ONDANSETRON 4 MG ODT PO ONE (14:10)
[2022-06-02] MEDS ORDERED: NACL 0.9% 1,000 ML IV ONE (14:15)
[2022-06-02] MEDS ORDERED: KETOROLAC 15 MG/ML VIAL IVP ONE (14:15)
[2022-06-02] MEDS ORDERED: MORPHINE SULFATE 2 MG/ML SYR IVP PRN (14:30)
[2022-06-02] MEDS ORDERED: ONDANSETRON 4 MG/2 ML VIAL IVP PRN (14:30)
[2022-06-02] MEDS ORDERED: LORazepam 2 MG/ML VIAL IVP PRN (14:30)
[2022-06-02] MEDS ORDERED: ACETAMINOPHEN 325 MG TAB PO PRN (14:30)
[2022-06-02] MEDS ORDERED: NACL 0.9% 1,000 ML IV SCH (14:30)
[2022-06-02] MEDS ORDERED: HYDROcodone/APAP 5/325 MG 1 TAB TAB PO PRN (14:30)
[2022-06-02] MEDS ORDERED: cefTRIAXone 1,000 MG VIAL ONE (14:44)
[2022-06-02 15:09] LABS: BASOPHILS % (AUTO) 0.4 % (0.0-2.0); EOSINOPHILS # (AUTO) 0.1 K/uL (0-0.4); EOSINOPHILS % (AUTO) 1.3 % (0.0-4.0); HEMOGLOBIN 11.2 g/dL (12.0-18.0); LYMPHOCYTES # (AUTO) 1.4 K/uL (2.0-11.5); LYMPHOCYTES % (AUTO) 13.3 % (20.5-51.1); MEAN CORPUSCULAR HEMOGLOBIN 29 pg (27-31); MEAN CORPUSCULAR HGB CONC 34 g/dL (33-37); MEAN CORPUSCULAR VOLUME 84.9 fL (80-94); MONOCYTES # (AUTO) 0.6 K/uL (0.8-1.0); MONOCYTES % (AUTO) 5.6 % (1.7-9.3); NEUTROPHILS # (AUTO) 8.3 K/uL (1.8-7.7); NEUTROPHILS % (AUTO) 79.4 % (42.2-75.2); PLATELET COUNT (AUTO) 151 K/uL (140-450); RED BLOOD CELL COUNT(AUTO) 3.88 MIL/uL (4.20-6.10); RED CELL DISTRIBUTION WIDTH 13.2 % (11.6-13.7); WHITE BLOOD COUNT (AUTO) 10.4 K/uL (4.8-10.8)
--- NOTE | 2022-06-02 15:28 | NUR ---
ASSUMED PATIENT CARE, NURSING ASSESSMENT COMPLETED.
[2022-06-02 15:32] VITALS: BP 121/68
[2022-06-02 15:34] LABS: ALBUMIN 1.8 g/dL (3.4-5.0); ANION GAP 14.5 (8-16); ASPARTATE AMINOTRANSFERASE 7 U/L (15-37); CARBON DIOXIDE 15.2 mmol/L (21-32); CHLORIDE 125 mmol/L (98-107); GFR ARICAN-AMERICAN 427 mL/min (>90); GLUCOSE 53 mg/dL (74-106); SODIUM SERUM 153 mmol/L (136-145); TOTAL BILIRUBIN 0.2 mg/dL (0.0-1.0); UREA NITROGEN, BLOOD 6 mg/dL (7-18)
[2022-06-02 15:51] LABS: CREATININE 0.3 mg/dL (0.6-1.3)
[2022-06-02] MEDS ORDERED: POTASSIUM CHLORIDE 10 MEQ TABER PO ONE (16:15)
[2022-06-02] MEDS ORDERED: POTASSIUM CHLORIDE 40 MEQ in NACL 0.9% 1,000 ML IV SCH (16:15)
--- NOTE | 2022-06-02 17:10 | NUR ---
PATIENT DECIDING TO [facility] AMA, HE DOESN'T HAVE ANYONE TO TAKE CARE OF HIS KIDS. RISKS DISCUSSED BY DR VICTOR. AMA FORM SIGNED BY PATIENT, IV DISCONTINUED.
[2022-06-03] MEDS ORDERED: ENOXAPARIN 40 MG/0.4 ML SYR SUBQ SCH (09:00)
== END 2022-06-02 17:05 | disposition left against medical advice (07) | DRG 465 ==
LOC: MED 12:31 → MTU 14:30
PROVIDERS: ADMIT Hospitalist; ATTEND Hospitalist
DX: N20.1 Calculus of ureter (principal); E43 Unspecified severe protein-calorie malnutrition; E87.0 Hyperosmolality and hypernatremia; N39.0 Urinary tract infection, site not specified; E87.6 Hypokalemia; J44.9 Chronic obstructive pulmonary disease, unspecified; K21.9 Gastro-esophageal reflux disease without esophagitis; Z53.29 Procedure and treatment not carried out because of patient's decision for other reasons; Z20.822 Contact with and (suspected) exposure to COVID-19; Z87.442 Personal history of urinary calculi; Z68.39 Body mass index [BMI] 39.0-39.9, adult
CPT/HCPCS: 36415; 80053; 83605; 84132; 85025; 99285; J0696; J1885; J7060; Q0162

== ENCOUNTER 2023-05-20 01:26 | Emergency (ER) | payer OTHER ==
[~2023-05-20] VITALS: Ht 177.8 cm; Wt 122.0 kg
[2023-05-20 01:32] VITALS: BP 133/89; PULSE 110; RESP 16; TEMP 96.7; O2SAT 98
[2023-05-20] MEDS ORDERED: SULF-59 PO (03:34)
== END 2023-05-20 03:35 | disposition home or self-care (01) ==
LOC: MED 01:26
DX: K13.0 Diseases of lips (principal); J45.909 Unspecified asthma, uncomplicated; J44.9 Chronic obstructive pulmonary disease, unspecified; I10 Essential (primary) hypertension; Z79.899 Other long term (current) drug therapy
CPT/HCPCS: 99283